=== PATIENT | male | born 1970 | race Caucasian/White ===

== ENCOUNTER 2016-09-03 03:49 | Emergency (ER) | payer SELFPAY ==
[~2016-09-03] VITALS: Ht 167.6 cm; Wt 66.8 kg
[~2016-09-03 03:49] MED LIST: ATIVAN0.5 M1 PO; BENTYL20 MG PO; CYMBALTA30 MG PO; DILAUDID2 MG PO; ENDOCET 5-3251 EAC1 PO; ENDOCET 7.5-321 EACH PO; HYDROCODONE BT1 EACH PO
[2016-09-03] MEDS ORDERED: NORCO 5/3251 TABLET PO (04:37)
[2016-09-03 04:57] VITALS: BP 130/104
[2016-09-03] MEDS ORDERED: CLEOCIN300 MG PO (05:08)
== END 2016-09-03 05:09 | disposition home or self-care (01) ==
LOC: EME 03:49
PROC: 3E0T3BZ Introduction of Anesthetic Agent into Peripheral Nerves and Plexi, Percutaneous Approach (ICD-10-PCS; principal; 2016-09-03)
DX: K04.7 Periapical abscess without sinus (principal)
CPT/HCPCS: 99281; 99284